=== PATIENT | female | born 1955 | race Caucasian/White ===

== ENCOUNTER 2017-06-18 14:02 | Emergency (ER) | payer BC ==
[~2017-06-18] VITALS: Ht 162.6 cm; Wt 75.0 kg
[2017-06-18 14:12] VITALS: BP 164/84
[2017-06-18] MEDS ORDERED: PROPARACAINE OPHTH 0.5%, 15ML ONE (14:40)
[2017-06-18] MEDS ORDERED: FLUORESCEIN OPHTHALMIC 1 MG STRIP ONE (14:40)
[2017-06-18] MEDS ORDERED: PROPARACAINE OPHTH 0.5%, 15ML EACHEYE ONE (15:00)
[2017-06-18] MEDS ORDERED: FLUORESCEIN OPHTHALMIC 1 MG STRIP EACHEYE ONE (15:00)
== END 2017-06-18 15:16 | disposition home or self-care (01) ==
LOC: ED 14:33
DX: H11.31 Conjunctival hemorrhage, right eye (principal); J45.909 Unspecified asthma, uncomplicated; E11.9 Type 2 diabetes mellitus without complications; E78.00 Pure hypercholesterolemia, unspecified
CPT/HCPCS: 99282